=== PATIENT | female | born 1985 | race African-American/Black ===

== ENCOUNTER → 2018-05-02 | Outpatient (CLI) | payer MEDICARE ==
[2018-05-02 15:29] LABS: ANION GAP 8 (5-19); BLOOD UREA NITROGEN 14 mg/dL (7-20); CALCIUM 9.6 mg/dL (8.4-10.2); CARBON DIOXIDE 25 mmol/L (22-30); CHLORIDE 105 mmol/L (98-107); GLUCOSE 103 mg/dL (75-110); POTASSIUM 4.4 mmol/L (3.6-5.0); SODIUM 138.3 mmol/L (137-145)
== END ==
LOC: OD 14:36
PROVIDERS: ATTEND Family Medicine
DX: E11.9 Type 2 diabetes mellitus without complications (principal)
CPT/HCPCS: 36415; 80048; 83036

== ENCOUNTER → 2018-07-26 | Outpatient (CLI) | payer MEDICARE ==
--- NOTE | 2018-07-26 14:33 | RADIOLOGY REPORT (SQ) ---
EXAM DESCRIPTION: CHEST PA/LATERAL COMPLETED DATE/TIME: 07/26/2018 2:20 pm REASON FOR STUDY: PRE-OP COMPARISON: None. EXAM PARAMETERS: NUMBER OF VIEWS: two views TECHNIQUE: Digital Frontal and Lateral radiographic views of the chest acquired. RADIATION DOSE: NA LIMITATIONS: none FINDINGS: LUNGS AND PLEURA: No opacities, masses or pneumothorax. No pleural effusion. MEDIASTINUM AND HILAR STRUCTURES: No masses or contour abnormalities. HEART AND VASCULAR STRUCTURES: Heart normal size. No evidence for failure. BONES: No acute findings. HARDWARE: None in the chest. OTHER: No other significant finding. IMPRESSION: 1. NO SIGNIFICANT RADIOGRAPHIC FINDING IN THE CHEST. TECHNICAL DOCUMENTATION: JOB ID: [id number] [employer]- All Rights Reserved Reading location - IP/workstation name: [email or web address]
[2018-07-26 15:21] LABS: ABSOLUTE EOSINOPHILS # (AUTO) 0.2 10^3/uL (0.0-0.6); ABSOLUTE LYMPHOCYTES (AUTO) 2.1 10^3/uL (0.5-4.7); ABSOLUTE MONOCYTES (AUTO) 0.3 10^3/uL (0.1-1.4); ABSOLUTE NEUT (AUTO) 2.7 10^3/uL (1.7-8.2); BASOPHILS % (AUTO) 0.4 % (0-2); EOSINOPHILS % (AUTO) 3.1 % (0-6); HEMATOCRIT 36.2 % (36.0-47.0); LYMPHOCYTES % (AUTO) 39.4 % (13-45); MEAN CORPUSCULAR HEMOGLOBIN 29.4 pg (27.0-33.4); MEAN CORPUSCULAR HGB CONC 33.1 g/dL (32.0-36.0); MEAN CORPUSCULAR VOLUME 89 fl (80-97); PLATELET COUNT 250 10^3/uL (150-450); RED BLOOD COUNT 4.07 10^6/uL (3.72-5.28); SEGMENTED NEUTROPHILS % (AUTO) 51.1 % (42-78); TOTAL CELLS COUNTED % (AUTO) 100 %; WHITE BLOOD COUNT 5.4 10^3/uL (4.0-10.5)
[2018-07-26 15:32] LABS: ALANINE AMINOTRANSFERASE 39 U/L (9-52); ALKALINE PHOSPHATASE 75 U/L (38-126); ANION GAP 9 (5-19); ASPARTATE AMINO TRANSFERASE 25 U/L (14-36); BILIRUBIN,DIRECT 0.2 mg/dL (0.0-0.4); BILIRUBIN,TOTAL 0.2 mg/dL (0.2-1.3); BLOOD UREA NITROGEN 11 mg/dL (7-20); CALCIUM 9.6 mg/dL (8.4-10.2); CARBON DIOXIDE 27 mmol/L (22-30); CHLORIDE 103 mmol/L (98-107); GLUCOSE 151 mg/dL (75-110); POTASSIUM 4.3 mmol/L (3.6-5.0); TOTAL PROTEIN 7.4 g/dL (6.3-8.2)
--- NOTE | 2018-07-26 17:24 | EKG REPORT ---
SEVERITY:- NORMAL ECG - SINUS RHYTHM : Confirmed by: Arnoldo Ackerman MD 26-Jul-2018 17:24:25
== END ==
LOC: OD 13:43
PROVIDERS: ATTEND Surgery
DX: Z01.810 Encounter for preprocedural cardiovascular examination (principal); Z01.811 Encounter for preprocedural respiratory examination; Z01.812 Encounter for preprocedural laboratory examination; Z01.818 Encounter for other preprocedural examination; E66.01 Morbid (severe) obesity due to excess calories; E11.9 Type 2 diabetes mellitus without complications; K21.9 Gastro-esophageal reflux disease without esophagitis
CPT/HCPCS: 36415; 71046; 80053; 84443; 85025; 93005; 93010

== ENCOUNTER 2018-08-10 09:20 | Emergency (ER) | payer MEDICARE ==
[2018-08-10] MEDS ORDERED: ASPIRIN 81 MG TABLET, CHEWABLE PO ONE (09:52)
--- NOTE | 2018-08-10 09:52 | ER Document Report ---
ED Medical Screen (RME) - General Chief Complaint: Chest Pain Stated Complaint: CHEST PAIN Time Seen by Provider: 08/10/18 09:46 Primary Care Provider: JENS GARRISON MD [Primary Care Provider] - Follow up as needed Information source: Patient Notes: Patient presents complaining of right-sided chest pain. Patient states pain has been constant for the past 3 days. Nothing aggravates or alleviates the symptoms. Patient denies any cough fever or urinary symptoms. Patient does state that she has been dieting and increasing her exercise recently. hx: Diabetes, asthma I have greeted and performed a rapid initial assessment of this patient. A comprehensive ED assessment and evaluation of the patient, analysis of test results and completion of the medical decision making process will be conducted by additional ED providers. TRAVEL OUTSIDE OF THE [place] IN LAST 30 DAYS: No - Related Data Allergies/Adverse Reactions: Morphine Allergy (Uncoded 08/10/18 09:46) Shrimp Allergy (Uncoded 08/10/18 09:46) Physical Exam - Vital signs Vitals: Temp Pulse Resp BP Pulse Ox 98.1 F 86 18 142/82 H 98 08/10/18 09:42 08/10/18 09:42 08/10/18 09:42 08/10/18 09:42 08/10/18 09:42 - Cardiovascular Rhythm: Regular Heart sounds: S1 appreciated, S2 appreciated Course - Vital Signs Vital signs: Temp Pulse Resp BP Pulse Ox 98.1 F 86 18 142/82 H 98 08/10/18 09:42 08/10/18 09:42 08/10/18 09:42 08/10/18 09:42 08/10/18 09:42 Doctor's Discharge - Discharge Referrals: JENS GARRISON MD [Primary Care Provider] - Follow up as needed
--- NOTE | 2018-08-10 10:20 | RADIOLOGY REPORT (SQ) ---
EXAM DESCRIPTION: CHEST 2 VIEWS COMPLETED DATE/TIME: 08/10/2018 10:05 am REASON FOR STUDY: R side cp COMPARISON: 07/26/2018. EXAM PARAMETERS: NUMBER OF VIEWS: two views TECHNIQUE: Digital Frontal and Lateral radiographic views of the chest acquired. RADIATION DOSE: NA LIMITATIONS: none FINDINGS: LUNGS AND PLEURA: No opacities, masses or pneumothorax. No pleural effusion. MEDIASTINUM AND HILAR STRUCTURES: No masses or contour abnormalities. HEART AND VASCULAR STRUCTURES: Heart normal size. No evidence for failure. BONES: No acute findings. HARDWARE: None in the chest. OTHER: No other significant finding. IMPRESSION: NO ACUTE RADIOGRAPHIC FINDING IN THE CHEST. TECHNICAL DOCUMENTATION: JOB ID: [id number] [employer]- All Rights Reserved Reading location - IP/workstation name: [email or web address]
[2018-08-10 10:49] LABS: ABSOLUTE EOSINOPHILS # (AUTO) 0.1 10^3/uL (0.0-0.6); ABSOLUTE LYMPHOCYTES (AUTO) 2.4 10^3/uL (0.5-4.7); ABSOLUTE MONOCYTES (AUTO) 0.4 10^3/uL (0.1-1.4); ABSOLUTE NEUT (AUTO) 1.8 10^3/uL (1.7-8.2); APPEARANCE,URINE CLEAR; BASOPHILS % (AUTO) 0.7 % (0-2); BILIRUBIN,URINE NEGATIVE (NEGATIVE); COLOR,URINE YELLOW; EOSINOPHILS % (AUTO) 2.7 % (0-6); GLUCOSE, URINE NEGATIVE (NEGATIVE); HEMATOCRIT 38.8 % (36.0-47.0); HEMOGLOBIN 12.6 g/dL (12.0-15.5); KETONES,URINE NEGATIVE (NEGATIVE); LEUKOCYTE ESTERASE,URINE NEGATIVE (NEGATIVE); LYMPHOCYTES % (AUTO) 50.1 % (13-45); MEAN CORPUSCULAR HGB CONC 32.4 g/dL (32.0-36.0); MEAN CORPUSCULAR VOLUME 90 fl (80-97); MONOCYTES % (AUTO) 8.9 % (3-13); NITRITE,URINE NEGATIVE (NEGATIVE); PLATELET COUNT 283 10^3/uL (150-450); PROTEIN,URINE NEGATIVE (NEGATIVE); RED BLOOD COUNT 4.33 10^6/uL (3.72-5.28); RED CELL DISTRIBUTION WIDTH 13.3 % (11.5-14.0); SEGMENTED NEUTROPHILS % (AUTO) 37.6 % (42-78); TOTAL CELLS COUNTED % (AUTO) 100 %; URINE SPECIFIC GRAVITY 1.021; UROBILINOGEN,URINE NEGATIVE mg/dL (<2.0); WHITE BLOOD COUNT 4.8 10^3/uL (4.0-10.5)
[2018-08-10 11:03] LABS: ALANINE AMINOTRANSFERASE 37 U/L (9-52); ALBUMIN 4.6 g/dL (3.5-5.0); ALKALINE PHOSPHATASE 62 U/L (38-126); ANION GAP 11 (5-19); ASPARTATE AMINO TRANSFERASE 26 U/L (14-36); BILIRUBIN,DIRECT 0.2 mg/dL (0.0-0.4); BILIRUBIN,TOTAL 0.5 mg/dL (0.2-1.3); BLOOD UREA NITROGEN 11 mg/dL (7-20); CARBON DIOXIDE 30 mmol/L (22-30); CHLORIDE 101 mmol/L (98-107); CREATINE KINASE 337 U/L (30-135); GLUCOSE 90 mg/dL (75-110); LIPASE 63.9 U/L (23-300); POTASSIUM 4.5 mmol/L (3.6-5.0); SODIUM 141.7 mmol/L (137-145); TOTAL PROTEIN 8.1 g/dL (6.3-8.2)
[2018-08-10 11:15] LABS: CREATINE KINASE MB 1.61 ng/mL (<4.55)
[2018-08-10 11:17] LABS: TROPONIN I < 0.012 ng/mL
--- NOTE | 2018-08-10 14:50 | ER Document Report ---
ED General - General Chief Complaint: Chest Pain Stated Complaint: CHEST PAIN Time Seen by Provider: 08/10/18 09:46 Primary Care Provider: PIA SHEPARD MD [ACTIVE STAFF] - 08/11/18 JENS GARRISON MD [ASSOCIATE] - Follow up as needed Mode of Arrival: Ambulatory Information source: Patient Notes: This is a 33-year-old female with a history of diet-controlled diabetes (on no medicines) that is been working out for the past week (walking 5 miles) in anticipation for weight loss surgery in 1 week. She has had constant right upper chest/shoulder for the past week. There is no exertional or relieving factors. TRAVEL OUTSIDE OF THE [place] IN LAST 30 DAYS: No - HPI Onset: Yesterday Onset/Duration: Gradual Quality of pain: Sharp Severity: Mild Pain Level: 1 Associated symptoms: Chest pain. denies: Fever, Shortness of breath Exacerbated by: Movement Relieved by: Remaining still Similar symptoms previously: No Recently seen / treated by doctor: No - Related Data Allergies/Adverse Reactions: Morphine Allergy (Uncoded 08/10/18 09:46) Shrimp Allergy (Uncoded 08/10/18 09:46) Past Medical History - General Information source: Patient - Social History Smoking Status: Never Smoker Cigarette use (# per day): No Chew tobacco use (# tins/day): No Frequency of alcohol use: None Drug Abuse: None Lives with: Family Family History: None Patient has suicidal ideation: No Patient has homicidal ideation: No Pulmonary Medical History: Reports: Hx Asthma Endocrine Medical History: Reports: Hx Diabetes Mellitus Type 2 - not on meds Renal/ Medical History: Denies: Hx Peritoneal Dialysis Past Surgical History: Reports: Hx Abdominal Surgery - hernia repair, Hx Tubal Ligation Review of Systems - Review of Systems Constitutional: denies: Chills, Fever EENT: No symptoms reported Cardiovascular: See HPI Respiratory: No symptoms reported Gastrointestinal: No symptoms reported Genitourinary: No symptoms reported Female Genitourinary: No symptoms reported Musculoskeletal: See HPI Skin: No symptoms reported Hematologic/Lymphatic: No symptoms reported Neurological/Psychological: No symptoms reported Physical Exam - Vital signs Vitals: Temp Pulse Resp BP Pulse Ox 98.1 F 86 18 142/82 H 98 08/10/18 09:42 08/10/18 09:42 08/10/18 09:42 08/10/18 09:42 08/10/18 09:42 Notes: Physical exam: GENERAL: She is alert and oriented x3, no acute distress HEAD: Atraumatic, normocephalic. EYES: Pupils equal round and reactive to light, extraocular movements intact, sclera anicteric, conjunctiva are normal. ENT: TMs normal, nares patent, oropharynx clear without exudates. Moist mucous membranes. NECK: Normal range of motion, supple without obvious mass or JVD. LUNGS: Breath sounds clear to auscultation bilaterally and equal. No wheezes rales or rhonchi. HEART: Regular rate and rhythm without murmurs, rubs or gallops. ABDOMEN: Soft, normoactive bowel sounds. No tenderness to palpation. No guarding, no rebound. No masses appreciated. EXTREMITIES: Normal range of motion, no pitting or edema. No clubbing or cyanosis. NEUROLOGICAL: Cranial nerves II through XII grossly intact. Normal speech, moving all extremities. PSYCH: Normal mood, normal affect. SKIN: Warm, Dry, normal turgor, no rashes or lesions noted. Course - Re-evaluation Re-evalutation: 08/10/18 16:53 Since heart score is 1 which puts her at a low risk. She is to get significant surgery in a week and given her symptoms of chest pain, I did discuss the case with Dr. Shepard and I will have her follow-up with him for an outpatient stress test and echo. - Vital Signs Vital signs: Temp Pulse Resp BP Pulse Ox 98.4 F 86 19 130/71 H 98 08/10/18 14:59 08/10/18 09:42 08/10/18 14:59 08/10/18 14:36 08/10/18 14:36 - Laboratory Result Diagrams: 08/10/18 10:22 08/10/18 10:22 Laboratory results interpreted by me: 08/10/18 08/10/18 10:22 10:22 Seg Neutrophils % 37.6 L Lymphocytes % 50.1 H Creatine Kinase 337 H - Diagnostic Test Radiology reviewed: Image reviewed, Reports reviewed - Stat x-ray shows no infiltrates or effusions. - EKG Interpretation by Me Rate: Normal Rhythm: NSR - EKG shows normal sinus rhythm with a ventricular rate of 84, no acute ST-T wave changes Discharge - Discharge Clinical Impression: Chest pain Qualifiers: Chest pain type: unspecified Qualified Code(s): R07.9 - Chest pain, unspecified Condition: Stable Disposition: HOME, SELF-CARE Additional Instructions: As we discussed, your heart tests and blood tests look quite good today. Your EKG look good as well. Your chest x-ray was clear. Your heart score (which is a score for risk for acute heart issues) is low. Given that you do have scheduled surgery for a week, I did call our credit professional (Dr. Shepard) who is willing to see you shortly in his office to go over all the tests and your symptoms and to reevaluate you before surgery. I left his number on the chart. Return to the emergency room for any worsening pain, shortness of breath or any concerns or getting worse. Referrals: JENS GARRISON MD [ASSOCIATE] - Follow up as needed PIA SHEPARD MD [ACTIVE STAFF] - 08/11/18
[2018-08-10 14:53] VITALS: BP 130/71
--- NOTE | 2018-08-10 20:07 | EKG REPORT ---
SEVERITY:- NORMAL ECG - SINUS RHYTHM : Confirmed by: Krystyna Lynn MD 10-Aug-2018 20:06:00
== END 2018-08-10 15:00 | disposition home or self-care (01) ==
LOC: ER 09:20
DX: R07.9 Chest pain, unspecified (principal); E11.9 Type 2 diabetes mellitus without complications; J45.909 Unspecified asthma, uncomplicated; Z88.5 Allergy status to narcotic agent; Z91.013 Allergy to seafood
CPT/HCPCS: 93005; 99284; 36415; 82553; 82550; 83690; 84703; 85025; 80053; 81001; 84484; 71046; 93010; A9270

== ENCOUNTER → 2018-08-17 | Outpatient (CLI) | payer MEDICARE ==
--- NOTE | 2018-08-17 09:03 | WOMENS IMAGING REPORT ---
EXAM DESCRIPTION: U/S ABDOMEN LIMITED COMPLETED DATE/TIME: 08/17/2018 8:53 am REASON FOR STUDY: R10.11 RIGHT UPPER QUADRANT PAIN R10.11 RIGHT UPPER QUADRANT PAIN COMPARISON: None. TECHNIQUE: Dynamic and static grayscale images acquired of the abdomen and recorded on PACS. Additio bradley selected color Doppler and spectral images recorded. LIMITATIONS: None. FINDINGS: PANCREAS: No masses. Visualized pancreatic duct normal caliber. LIVER: No masses. No intrahepatic ductal dilation. Increased echogenicity with decreased visualizat ion of the portal triads. LIVER VASCULATURE: Normal directional flow of the main portal vein and hepatic veins. GALLBLADDER: No stones. Normal wall thickness. No pericholecystic fluid. ULTRASOUND-DETECTED ARELLANO'S SIGN: Negative. INTRAHEPATIC DUCTS AND COMMON DUCT: CBD and intrahepatic ducts normal caliber. No filling defects. INFERIOR VENA CAVA: Normal flow. AORTA: No aneurysm. RIGHT KIDNEY: Normal size measuring 10.4 cm. Normal echogenicity. No solid or suspicious masses. No hydronephrosis. No calcifications. PERITONEAL AND RIGHT PLEURAL SPACE: No ascites or effusions. OTHER: No other significant findings. IMPRESSION: Likely hepatic steatosis. Otherwise, unremarkable right upper quadrant ultrasound. TECHNICAL DOCUMENTATION: JOB ID: [id number] [employer]- All Rights Reserved Reading location - IP/workstation name: [email or web address]
== END ==
LOC: WI 08:18
PROVIDERS: ATTEND Surgery
DX: R10.11 Right upper quadrant pain (principal); E66.01 Morbid (severe) obesity due to excess calories
CPT/HCPCS: 76705